=== PATIENT | male | born 1955 | race African-American/Black ===

== ENCOUNTER 2017-02-06 12:01 | Inpatient (IN) | payer BC ==
[2017-01-30 16:15] LABS: BASOPHILS 0.8 %; BASOPHILS ABSOLUTE 0.06 10/3/uL (0.0-0.16); EOSINOPHILS ABSOLUTE 0.14 10/3/uL (0.0-0.53); HEMATOCRIT 39.9 % (40.0-51.0); HEMOGLOBIN 13.5 g/dL (13.6-17.8); IMMATURE GRANULOCYTES 0.3 %; IMMATURE GRANULOCYTES ABSOLUTE 0.02 10/3/uL (0.0-0.11); LYMPHOCYTES 35.1 %; LYMPHOCYTES ABSOLUTE 2.49 10/3/uL (0.67-4.30); MANUAL DIFF NO %; MEAN CORPUS HGB CONC 33.8 g/dL (32.0-36.0); MEAN CORPUSCULAR VOLUME 88.7 fL (80-100); MEAN PLATELET VOLUME 10.4 fL (9.2-13.0); MONOCYTES 6.6 %; MONOCYTES ABSOLUTE 0.47 10/3/uL (0.21-1.20); NEUTROPHILS 55.2 %; NEUTROPHILS ABSOLUTE 3.91 10/3/uL (2.02-8.40); PLATELET COUNT 275 10/3/uL (150-400); RBC DISTRIBUTION WIDTH 15.5 % (12.0-16.0); WHITE BLOOD CELLS 7.1 10/3/uL (4.5-10.5)
[2017-01-30 16:22] LABS: INTERNATIONAL NORMAL RATI 1.1 UNITS (-); PARTIAL THROMBO TIME 25.9 SEC (22.5-37.2); PROTIME (NOT ORD) 13.9 SEC (12.0-14.5)
[2017-01-30 16:29] LABS: A/G RATIO 1.2 (0.7-1.9); ALBUMIN 4.1 G/DL (3.5-5.0); ALKALINE PHOSPHATASE 66 U/L (45-117); BUN (BLOOD UREA NITROGEN) 11 MG/DL (6-23); CALCIUM, SERUM 9.2 MG/DL (8.5-10.4); CHLORIDE, SERUM 107 MMOL/L (96-112); CO2 (CARBON DIOXIDE) 27 MMOL/L (24-34); CREATININE 0.85 MG/DL (0.70-1.30); GFR AFRICAN AMERICAN 108 ML/MIN (>=60); GFR NON AFRICAN AMERICAN 93 ML/MIN (>=60); GLOBULIN 3.3 G/DL (2.5-4.1); GLUCOSE, SERUM 93 MG/DL (60-99); SGOT(AST) 17 U/L (5-40); SGPT(ALT) 40 U/L (5-65); SODIUM, SERUM 140 MMOL/L (135-148); TOTAL BILIRUBIN 0.3 MG/DL (0-1.2); TOTAL PROTEIN 7.4 G/DL (6.0-8.5)
[2017-01-30 16:35] LABS: ASCORBIC ACID (UR NOT ORDER) 20 (NEG); BILIRUBIN, URINE NEGATIVE (NEG); KETONE, URINE NEGATIVE (NEG); LEUKOCYTE ESTERASE(NOT OR NEG (NEG); WBC (NOT ORDERED) (RFLEX) < 1 (0-5)
--- NOTE | ~2017-02-06 | OP ---
Record Of Operation [facility] [address] [place]. [address] NAME: LILLY VARGHESE : 53 STATUS : ADM IN PAT#: [id number] AGE: 61 ADM/REG DATE : 02/06/17 MR#: [id number] REPORT SERV DATE: 02/07/17 DICTATED BY: HILARIA RIGGISN DATE: 02/06/17 REPORT STATUS : Draft TRANSCRIBED BY: MODL DATE: 02/06/17 DATE OF PROCEDURE: 02/06/2017 PREOPERATIVE DIAGNOSIS: Left hip arthritis. POSTOPERATIVE DIAGNOSIS: Left hip arthritis. PROCEDURE PERFORMED: Left total hip arthroplasty. SURGEON: Hilaria Riggins M.D. HAND GLOVE CLEANER: Killian Lucero. ANESTHESIA: General with local infusion. PROCEDURE IN DETAIL: The patient is clearly identified and after obtaining informed consent is brought to the operating room at [facility] where here the patient is induced under general anesthesia and subsequently placed in the left lateral decubitus position. This concluded, the thigh and flank are prepped and draped in the usual manner. A time-out procedure successfully performed and after registering the knee and marking the anatomy through an approximately 4.5 incision, the skin is divided. The fascial planes are divided. The lateral fascia then is divided. Hemostasis is obtained with electrocautery and a Charnley retractor is applied. The piriformis is identified, tagged, divided, and retracted over the sciatic nerve felt deep in the wound. At which point, the mini approach to the hip is formed with dividing the capsule in a mini approach with a cuff of tissues remaining at the femoral side to accomplish repair at the conclusion of the case. Dislocating the hip, end-stage arthritic changes are noted. The tissue surrounding the femoral neck are protected with the Hohmann retractor and the femoral neck cut is made according to preoperative templating. This concluded, the femoral head is removed. The acetabulum is exposed. The labral and fluvial tissues are removed and reaming is performed. Subsequently trialing with the appropriate trial, the permanent acetabular components placed with the [place] Sector. At which point, the acetabular trial component is then placed. The proximal femur is then addressed. The structures posteromedial to the greater trochanter are removed and this concluded the el-cutter canal finder lateralizer and reaming is performed. This concluded, broaching is performed and with excellent fit-fill and stability for the implant trialing is performed finding excellent leg length, stability, no impingement, good kickback, no push-pull, and the lesser trochanter palpably at the appropriate distance from the ischium when compared to preoperative templating. The trials were felt to be appropriate. These are all then removed and the permanent implants are then carefully applied uneventfully. Copious irrigation is then performed with same stability and findings noted after insertion. At which point, the joint then is carefully closed in layers including capsule, piriformis, lateral fascia, deep tissues, and skin. Aquacel dressing is applied and the patient is then allowed to awaken, is placed supine and is returned to the recovery room in stable condition having tolerated the procedure well. ESTIMATED BLOOD LOSS: 100. Record Of Operation [address] [address] NAME: LILLY VARGHESE : 53 STATUS : ADM IN [facility]#: [id number] AGE: 61 ADM/REG DATE : 02/06/17 MR#: [id number] REPORT SERV DATE: 02/07/17 DICTATED BY: HILARIA RIGGINS DATE: 02/06/17 REPORT STATUS : Draft TRANSCRIBED BY: DAGMAR DATE: 02/06/17 FLUIDS: 1200. TOURNIQUET TIME: None. PATHOLOGY: Sent specimen. MICROBIOLOGY: None. COMPLICATIONS: None. SPONGE AND NEEDLE COUNTS: Reportedly correct. ANTIBIOTICS: Administered appropriately preoperatively and ordered to be discontinued within 23 hours. IMPLANTS: DePuy hip system, femur [place], size 5 standard +1.5/36 ceramic head. Acetabulum, Good[place] sector size 52 with a +4 neutral liner, and no screws. NIEVES/DAMGAR Hilaria Riggins M.D. / [id number] CC: Hilaria Riggins M.D.
--- NOTE | ~2017-02-06 | DS ---
Discharge Summary [facility] [address] [place]. [address] NAME: LILLY VARGHESE : 53 STATUS : DIS IN PAT#: [id number] AGE: 61 ADM/REG DATE : 02/06/17 MR#: [id number] REPORT SERV DATE: 02/20/17 DICTATED BY: HILARIA RIGGINS DATE: 02/19/17 REPORT STATUS : Draft TRANSCRIBED BY: MODEzequiel DATE: 02/19/17 Data Collection from hospitalization DISCHARGE DIAGNOSES: 1. Left hip arthritis. 2. Hypertension. 3. Anxiety disorder. 4. History of cerebrovascular accident. 5. Chronic obstructive pulmonary disease. 6. Heart murmur. 7. Former smoker. CONSULTATIONS: None. PROCEDURES PERFORMED: Left total hip arthroplasty, 02/06/2017. PATHOLOGY: Femur head, left hip bone and tissue - end-stage degenerative joint disease with eburnation, repair, and cyst. MEDICATIONS: Lotrel one capsule every morning, aspirin 81 mg every morning, folic acid 0.8 mg every morning, Neurontin 300 mg every day at bedtime, Dilaudid 1-2 mg every four to six hours as needed, fish oil 1000 mg every morning, Zoloft 50 mg every day at bedtime, Ultram 50 mg every six hours as needed, Coumadin 5 mg daily. CONDITION AT DISCHARGE: Stable. DISPOSITION: The patient was discharged home on a regular diet with activities as instructed. He would follow up with me, 02/22/2017. He would follow up at [facility] as instructed. He would follow up at [facility] outpatient lab Sunday or Sunday following discharge. HOSPITAL COURSE: This is a 61-year-old man, who had had left hip pain. He said his pain had significantly increased since his last visit. He said it was significantly affecting his activities of daily living. The patient has left hip arthritis. Treatment options were discussed and it was elected to proceed with surgical intervention. He was admitted to the hospital at this time for further evaluation and treatment. Upon admission, he was taken to the operating room, where he underwent the above-mentioned procedure. He tolerated this well and there were no complications. On postop day one, he was evaluated by Occupational Therapy. INR level was 1.1. He had good pain control. He was ambulatory. On postop day two, he was doing much better. DEONTE hose remained in place. He had normal distal pulses. We encouraged him to mobilize with Physical Therapy. Neurontin and Zoloft were continued as well as amlodipine and benazepril. Blood pressure was controlled. On 02/09/2017, he was alert and cooperative. He continued to progress. Discharge instructions were given. Due to his improved and stable condition, he was discharged home with the above-stated instructions. Information collected by: Chantelle Edmondson Discharge Summary [address] [address] NAME: LILLY VARGHESE : 53 STATUS : DIS IN PAT#: [id number] AGE: 61 ADM/REG DATE : 02/06/17 MR#: [id number] REPORT SERV DATE: 02/20/17 DICTATED BY: HILARIA RIGGINS DATE: 02/19/17 REPORT STATUS : Draft TRANSCRIBED BY: DAGMAR DATE: 02/19/17 I submit the above information as my discharge summary. TG/DAGMAR Hilaria Riggins M.D. / [id number] CC: Marilu Nguyen M.D.
[~2017-02-06 12:01] MED LIST: ASAB PO; FISH-EPA1000 MG PO; FOLIC ACID800 MCG PO; LOTREL1 CA2 PO; NEUR300 PO; ULTRAM50 PO; ZOL50 PO
[2017-02-07 05:22] LABS: BUN (BLOOD UREA NITROGEN) 10 MG/DL (6-23); CHLORIDE, SERUM 106 MMOL/L (96-112); CO2 (CARBON DIOXIDE) 24 MMOL/L (24-34); CREATININE 0.76 MG/DL (0.70-1.30); GFR AFRICAN AMERICAN 113 ML/MIN (>=60); GFR NON AFRICAN AMERICAN 98 ML/MIN (>=60); POTASSIUM, SERUM 4.3 MMOL/L (3.5-5.3); SODIUM, SERUM 140 MMOL/L (135-148)
[2017-02-07 05:26] LABS: CALCIUM, SERUM 8.1 MG/DL (8.5-10.4); GLUCOSE, SERUM 135 MG/DL (60-99)
[2017-02-07 05:37] LABS: INTERNATIONAL NORMAL RATI 1.1 UNITS (-); PROTIME (NOT ORD) 14.4 SEC (12.0-14.5)
[2017-02-07 05:40] LABS: HEMOGLOBIN 11.4 g/dL (13.6-17.8)
[2017-02-07 05:42] LABS: HEMATOCRIT 34.4 % (40.0-51.0)
[2017-02-08 04:55] LABS: HEMATOCRIT 31.5 % (40.0-51.0); HEMOGLOBIN 10.7 g/dL (13.6-17.8)
[2017-02-08 04:58] LABS: INTERNATIONAL NORMAL RATI 1.2 UNITS (-)
[2017-02-09 05:11] LABS: HEMOGLOBIN 10.7 g/dL (13.6-17.8)
[2017-02-09 05:30] LABS: INTERNATIONAL NORMAL RATI 1.2 UNITS (-); PROTIME (NOT ORD) 15.2 SEC (12.0-14.5)
[2017-02-09] MEDS ORDERED: DIL2TAB PO (16:05)
[2017-02-09] MEDS ORDERED: C5 PO (16:05)
[2017-06-06] MEDS ORDERED: NORCO1 TA1 PO (12:00)
[2017-06-06] MEDS ORDERED: IRON (12:00)
== END 2017-02-09 17:41 | disposition home or self-care (01) | DRG 470 ==
LOC: SDC/OF 12:01 → PACU 17:20 → 3SO 19:03
PROVIDERS: Orthopaedic Surgery
PROC: 0SRB02Z Replacement of Left Hip Joint with Metal on Polyethylene Synthetic Substitute, Open Approach (ICD-10-PCS; principal; 2017-02-06 14:00)
DX: M16.12 Unilateral primary osteoarthritis, left hip (principal); G62.9 Polyneuropathy, unspecified; I10 Essential (primary) hypertension; J44.9 Chronic obstructive pulmonary disease, unspecified; F41.8 Other specified anxiety disorders; Z79.82 Long term (current) use of aspirin; Z79.899 Other long term (current) drug therapy; Z87.891 Personal history of nicotine dependence; Z86.73 Personal history of transient ischemic attack (TIA), and cerebral infarction without residual deficits
CPT/HCPCS: 36415; 71020; 72170; 80048; 80053; 81001; 85014; 85018; 85025; 85610; 85730; 86850; 86900; 86901; 87641; 88304; 88311; 93005; 97110-GP; 97116-GP; 97161-GP; 97166-GO; 97535-GO; A9270-GY; C1776; J0690; J1170; J1885; J2250; J2274; J2370; J2405; J2710; J2795; J3010

== ENCOUNTER 2017-06-07 05:56 | Day surgery (SDC) | payer MEDICARE, BC ==
[~2017-06-07] VITALS: Ht 180.3 cm; Wt 75.3 kg
--- NOTE | ~2017-06-07 | EGD ---
EGD REPORT [facility] [address] [place] [address] NAME: LILLY VARGHESE : 53 STATUS : REG [facility] PAT#: [id number] AGE: 62 ADM/REG DATE : 06/07/17 MR#: [id number] REPORT SERV DATE: 06/07/17 DICTATED BY: PRINCESS LEWIS DATE: 06/07/17 REPORT STATUS : Draft TRANSCRIBED BY: [employer] DATE: 06/07/17 Endoscopy Center Patient Name: Lilly Varghese Date of : 1955 Attending MD: NASIMA LEWIS MD Procedure Date No Time: 06/07/2017 Procedure: Upper GI endoscopy Indications: Iron deficiency anemia Referring MD: JOHN CHOPRA Medicines: See the Anesthesia note for documentation of the administered medications Complications: No immediate complications. Estimated blood loss: Minimal. Procedure: Pre-Anesthesia Assessment: - ASA Grade Assessment: III - A patient with severe systemic disease. - Prior to the procedure, a History and Physical was performed, and patient medications and allergies were reviewed. The patient's tolerance of previous anesthesia was also reviewed. The risks and benefits of the procedure and the sedation options and risks were discussed with the patient. All questions were answered, and informed consent was obtained. Prior Anticoagulants: The patient has taken aspirin, last dose was 7 days prior to procedure. After reviewing the risks and benefits, the patient was deemed in satisfactory condition to undergo the procedure. After obtaining informed consent, the endoscope was passed under direct vision. Throughout the procedure, the patient's blood pressure, pulse, and oxygen saturations were monitored continuously. The GIF [id number] [id number] was introduced through the mouth, and advanced to the second part of duodenum. The upper GI endoscopy was accomplished without difficulty. The patient tolerated the procedure well. Findings: The examined duodenum was normal. Biopsies were taken with a cold forceps for histology. Diffuse moderate inflammation characterized by congestion (edema) and erythema was found in the gastric antrum. Biopsies were taken with a cold forceps for histology. The cardia and gastric fundus were normal on retroflexion. Diffuse mild erythema was found in the lower third of the esophagus. Biopsies were taken with a cold forceps for histology. EGD REPORT [address] [address] NAME: LILLY VARGHESE : 53 STATUS : REG [facility] PAT#: [id number] AGE: 62 ADM/REG DATE : 06/07/17 MR#: [id number] REPORT SERV DATE: 06/07/17 DICTATED BY: PRINCESS LEWIS DATE: 06/07/17 REPORT STATUS : Draft TRANSCRIBED BY: [employer] DATE: 06/07/17 No other significant abnormalities were identified in a careful examination of the esophagus. Impression: - Normal examined duodenum. Biopsied. - Gastritis. Biopsied. - Erythema in the lower third of the esophagus. Biopsied. Recommendation: - Patient has a contact number available for emergencies. The signs and symptoms of potential delayed complications were discussed with the patient. Return to normal activities tomorrow. Written discharge instructions were provided to the patient. - Regular diet. - Discharge patient to home. - Continue present medications. - Await pathology results. Procedure Code(s): --- Professional --- 89009, Esophagogastroduodenoscopy, flexible, transoral; with biopsy, single or multiple Diagnosis Code(s): --- Professional --- K29.70, Gastritis, unspecified, without bleeding K22.9, Disease of esophagus, unspecified D50.9, Iron deficiency anemia, unspecified CPT copyright 2013 [employer]. All rights reserved. The codes documented in this report are preliminary and upon vacuum plastic forming machine operator review may be revised to meet current compliance requirements. NASIMA LEWIS MD 06/07/2017 7:47 AM This report has been signed electronically. Number of Addenda: 0 Note Initiated On: 06/07/2017 7:31 AM Scope Withdrawal Time 0 hours 0 minutes 0 seconds [address] [id number]
--- NOTE | ~2017-06-07 | EGD ---
EGD REPORT [facility] [address] [place] [address] NAME: LILLY VARGHESE : 53 STATUS : REG [facility] PAT#: [id number] AGE: 62 ADM/REG DATE : 06/07/17 MR#: [id number] REPORT SERV DATE: 06/07/17 DICTATED BY: PRINCESS LEWIS DATE: 06/07/17 REPORT STATUS : Draft TRANSCRIBED BY: [facility] DATE: 06/07/17 Endoscopy Center Patient Name: Lilly Varghese Date of : 1955 Attending MD: NASIMA LEWIS MD Procedure Date No Time: 06/07/2017 Procedure: Colonoscopy Indications: Iron deficiency anemia, Last colonoscopy: October 2013 Referring MD: JOHN CHOPRA Medicines: See the Anesthesia note for documentation of the administered medications Complications: No immediate complications. Estimated blood loss: None. Procedure: Pre-Anesthesia Assessment: - ASA Grade Assessment: III - A patient with severe systemic disease. - Prior to the procedure, a History and Physical was performed, and patient medications and allergies were reviewed. The patient's tolerance of previous anesthesia was also reviewed. The risks and benefits of the procedure and the sedation options and risks were discussed with the patient. All questions were answered, and informed consent was obtained. Prior Anticoagulants: The patient has taken aspirin, last dose was 7 days prior to procedure. After reviewing the risks and benefits, the patient was deemed in satisfactory condition to undergo the procedure. After I obtained informed consent, the scope was passed under direct vision. Throughout the procedure, the patient's blood pressure, pulse, and oxygen saturations were monitored continuously. The PCF [id number] was introduced through the anus and advanced to the cecum, identified by appendiceal orifice and ileocecal valve. The colonoscopy was performed without difficulty. The patient tolerated the procedure well. The quality of the bowel preparation was adequate. Findings: The perianal and digital rectal examinations were normal. A sessile polyp was found in the distal transverse colon. The polyp was 3 mm in size. The polyp was removed with a cold biopsy forceps. Resection and retrieval were complete. A few small-mouthed diverticula were found in the entire colon. Non-bleeding internal hemorrhoids were found during retroflexion and were Grade I (internal hemorrhoids that do not prolapse). The exam was otherwise without abnormality on direct and retroflexion EGD REPORT [address] [address] NAME: LILLY VARGHESE : 53 STATUS : REG [facility]#: [id number] AGE: 62 ADM/REG DATE : 06/07/17 MR#: [id number] REPORT SERV DATE: 06/07/17 DICTATED BY: PRINCESS LEWIS DATE: 06/07/17 REPORT STATUS : Draft TRANSCRIBED BY: [employer] DATE: 06/07/17 views. Impression: - One 3 mm polyp in the distal transverse colon. Resected and retrieved. - Diverticulosis in the entire examined colon. - Non-bleeding internal hemorrhoids. - The examination was otherwise normal on direct and retroflexion views. Recommendation: - Patient has a contact number available for emergencies. The signs and symptoms of potential delayed complications were discussed with the patient. Return to normal activities tomorrow. Written discharge instructions were provided to the patient. - Regular diet. - Discharge patient to home. - Continue present medications. - Await pathology results. - Repeat colonoscopy in 5 years for surveillance. Procedure Code(s): --- Professional --- 39917, Colonoscopy, flexible, proximal to splenic flexure; with biopsy, single or multiple Diagnosis Code(s): --- Professional --- D12.3, Benign neoplasm of transverse colon K64.0, First degree hemorrhoids K57.30, Diverticulosis of large intestine without perforation or abscess without bleeding D50.9, Iron deficiency anemia, unspecified CPT copyright 2013 [employer]. All rights reserved. The codes documented in this report are preliminary and upon supervisor concrete pipe plant review may be revised to meet current compliance requirements. NASIMA LEWIS MD 06/07/2017 8:02 AM This report has been signed electronically. Number of Addenda: 0 Note Initiated On: 06/07/2017 7:28 AM Scope Withdrawal Time 0 hours 7 minutes 12 seconds [id number] [id number]
[~2017-06-07 05:56] MED LIST changes: +C5 PO; +DIL2TAB PO; +IRON; +NORCO1 TA1 PO
== END 2017-06-07 23:59 | disposition home or self-care (01) ==
LOC: DMU 05:56
PROVIDERS: Internal Medicine Gastroenterology
PROC: 0DB68ZX Excision of Stomach, Via Natural or Artificial Opening Endoscopic, Diagnostic (ICD-10-PCS; 2017-06-07)
PROC: 0DBL8ZX Excision of Transverse Colon, Via Natural or Artificial Opening Endoscopic, Diagnostic (ICD-10-PCS; 2017-06-07)
PROC: 0DB98ZX Excision of Duodenum, Via Natural or Artificial Opening Endoscopic, Diagnostic (ICD-10-PCS; principal; 2017-06-07 07:30)
PROC: 0DB58ZX Excision of Esophagus, Via Natural or Artificial Opening Endoscopic, Diagnostic (ICD-10-PCS; 2017-06-07 07:30)
DX: D12.3 Benign neoplasm of transverse colon (principal); K57.30 Diverticulosis of large intestine without perforation or abscess without bleeding; K64.0 First degree hemorrhoids; K29.50 Unspecified chronic gastritis without bleeding; K29.80 Duodenitis without bleeding; K20.9 Esophagitis, unspecified; I10 Essential (primary) hypertension; D50.9 Iron deficiency anemia, unspecified; J44.9 Chronic obstructive pulmonary disease, unspecified; M19.90 Unspecified osteoarthritis, unspecified site; M10.9 Gout, unspecified; N40.0 Benign prostatic hyperplasia without lower urinary tract symptoms; F41.9 Anxiety disorder, unspecified; R56.9 Unspecified convulsions; Z86.73 Personal history of transient ischemic attack (TIA), and cerebral infarction without residual deficits; Z79.82 Long term (current) use of aspirin; Z79.899 Other long term (current) drug therapy; Z87.891 Personal history of nicotine dependence; Z98.41 Cataract extraction status, right eye; Z98.42 Cataract extraction status, left eye; Z96.1 Presence of intraocular lens; Z98.890 Other specified postprocedural states
CPT/HCPCS: 88305